=== PATIENT | male | born 1990 | race Caucasian/White ===

== ENCOUNTER 2020-11-11 08:05 | Emergency (ER) | payer OTHER, SELFPAY ==
[2020-11-11 08:20] VITALS: BP 130/78; PULSE 91; RESP 16; TEMP 38.6; O2SAT 97; BMI 30.4
--- NOTE | 2020-11-11 08:26 | W.ED.COVID ---
HPI - COVID General: Chief Complaint: COVID symptoms Stated Complaint: TEMP, COUGH, BODY ACHES Time Seen by Provider: 11/11/20 08:13 Triage information: Has fever, cough or shortness of breath. Exposure to COVID + person last 14 days History of Present Illness: HPI Narrative: Patient is a 30-year-old male comes to the ED with fever, cough and body aches. Patient says he was exposed to some employee who had tested positive for COVID-19 right before the onset of symptoms. He says it is symptoms started couple days ago on Saturday. He is having symptoms of fever, chills, body aches, cough and shortness of breath. He also reports some episodes of nausea but has not had any vomiting. Patient says he has not had the COVID-19 vaccination. COVID 19 common symptoms: positive fever(s), chills, non-productive cough, dyspnea, body aches, nasal congestion and nausea (episodes of nausea); negative productive cough, fatigue, headache(s), throat pain, vomiting or diarrhea COVID 19 other sytmptoms: negative chest pain COVID Results: SARS-CoV-2 RNA (RT-PCR) Pending 11/11/20 09:15 11/11/20 Review of Systems Const: Reports: fever(s), chills and body aches; Denies: fatigue Eyes: Denies: change in vision or eye discomfort ENMT: Reports: nasal discharge and nasal congestion; Denies: throat pain or odynophagia Card: Denies: chest pain, palpitations, edema, swelling of feet/ankles, dyspnea on exertion or orthopnea Resp: Reports: dyspnea and non-productive cough; Denies: productive cough GI: Reports: nausea (episodes of nausea); Denies: abdominal pain, vomiting, diarrhea, constipation or hematochezia : Denies: flank pain, difficulty urinating, dysuria or hematuria Musc: Denies: neck pain, back pain or extremity swelling Skin/Breast: Denies: rash or new lesions Neuro: Denies: headache(s), numbness in extremities or weakness in extremities Physical Exam Const: COMMON NORMALS: no acute distress, patient oriented x3 and alert GENERAL APPEARANCE: cooperative HENMT: COMMON NORMALS: normocephalic HEAD & SCALP: normocephalic MOUTH: Normal oral and palatal mucosa present THROAT: posterior oropharynx normal and uvula midline Eye: COMMON NORMALS: Equal, round and reactive pupils present PUPIL: Yes Equal, round and reactive pupils present Neck/C-Spine: COMMON NORMALS: supple GENERAL: Yes normal visual inspection Resp: COMMON NORMALS: normal respiratory effort, No retractions, No use of accessory muscles and clear to auscultation bilaterally AUSCULTATION: clear to auscultation bilaterally Cardio: COMMON NORMALS: regular rate, regular rhythm, S1 normal heart sound present, S2 normal heart sound present, No gallops present (Cardio), No clicks present (Cardio), No murmurs present (Cardio) and Peripheral pulses 2+ throughout RATE: regular rate RHYTHM: regular rhythm HEART SOUNDS: S1 normal heart sound present and S2 normal heart sound present PERIPHERAL PULSES: Peripheral pulses 2+ throughout GI: COMMON NORMALS: Normal to inspection, nondistended, normoactive bowel sounds present, Soft to palpation, non-tender and no masses PALPATION: Yes Soft to palpation : COMMON NORMALS: Yes no CVA tenderness BLADDER/KIDNEY EXAM: Yes no CVA tenderness Back/Pelvis: COMMON NORMALS: no CVA tenderness Extremity: COMMON NORMALS: normal to inspection Neuro: COMMON NORMALS: patient oriented x3 and moves all extremities SENSORIUM/ORIENTATION: Yes alert Skin: GENERAL SKIN EXAM: dry skin Course Vital Signs: Vital signs: Vital Signs Temperature 101.5 F H 11/11/20 08:20 Pulse Rate 97 11/11/20 09:44 Respiratory Rate 17 11/11/20 09:44 Blood Pressure 124/64 11/11/20 09:44 Pulse Oximetry 95 11/11/20 09:44 MDM - COVID MDM Narrative: Medical decision making narrative: Patient is a 20-year-old male comes to the ED with upper respiratory Covid symptoms. Patient was exposed to an employee that tested positive for COVID-19 right before his symptoms started. He has a fever 101.5 here in the ED but the rest of vitals are stable and O2 sat is 97% on room air. Chest x-ray shows bilateral patchy pulmonary opacities consistent with pneumonia. Here in the ED patient was given Solu-Medrol and albuterol inhaler breathing treatment. Covid testing was performed and is pending. Patient was diagnosed with fever with exposure to COVID-19 virus and pneumonia discharged home on azithromycin, Tessalon Perles, Medrol Dosepak and Zofran. He was told to follow-up with his PCP in 7 to 10 days for reevaluation. He was instructed on self quarantine procedure. Return to ED precautions given. Patient understood agree with plan. Imaging Data: CXR: Attestation: I personally reviewed and interpreted this imaging study as follows: Radiologist's impression: [address] [address] XRay Report Signed Patient: Trino Denney Unit #: [id number] : 1990 Age/Sex: 30 / M ADM Date: 11/11/20 Loc: ER Room/Bed: Attending Dr: Ordering Provider/Ordering MD: Twan Danielson Date of Service: 11/11/20 Procedure(s): XR chest 1V portable [id number] Accession Number(s): [id number] Report Number: [id number] WS: [id number] Portable AP upright chest, 11/11/2020 Clinical Data: cough, fever Comparison: None. Findings: No nodules, masses or effusions are seen. The heart is normal. The pulmonary vascularity is not increased. No pneumothorax is seen. Bilateral minimal patchy opacities are present and the patient could have diffuse pneumonia. XR/XR chest 1V portable [id number] Impression: Bilateral minimal patchy pulmonary opacities consistent with pneumonia. Dictated By: Sadie Perkins MD Signed By: Sadie Perkins MD Signed Date/Time: 11/11/20908 DD/ 7 COVID Results: SARS-CoV-2 RNA (RT-PCR) Pending 11/11/20 09:15 11/11/20 Discharge Plan Discharge Patient Disposition: Home Clinical Impression: Fever with exposure to COVID-19 virus Pneumonia Qualifiers: Pneumonia type: due to unspecified organism Laterality: bilateral Lung location: unspecified part of lung Qualified Code(s): J18.9 - Pneumonia, unspecified organism Condition: Stable Prescriptions: New azithromycin 250 mg tablet See Rx Instructions .ROUTE .COMPLEX Qty: 6 RF: 0 Medrol (Derrick) 4 mg tablets,dose pack See Rx Instructions .ROUTE .COMPLEX Qty: 21 RF: 0 Tessalon Perles 100 mg capsule 100 mg PO QID PRN (Reason: cough) Qty: 20 RF: 0 Zofran 4 mg tablet 4 mg PO Q8H PRN (Reason: nausea and vomiting) Qty: 10 RF: 0 Discharge Orders: Discharge ED (Routine); Ordered 11/11/20 Ordered By: Twan Danielson Discharge Diet: Regular Discharge Activity: Limit activity as instructed Patient Instructions: Viral Syndrome (ED), Pneumonia (ED) Activity Restrictions/Additional Instructions: Follow-up with medical provider as directed. Self quarantine for the next 10 days from start of symptoms. COVID-19 testing was performed and results should be back in the next 48 hours. Hospital contact you to let you know results, but I would contact the hospital daily to check on results. Make sure you drink plenty of fluids and stay hydrated. Take [id number] ibuprofen or Tylenol for any fevers. Take medications as prescribed. Return to the ER or your medical provider if condition worsens. Please read and understand discharge instructions. Thank you for choosing [facility] for your healthcare needs today. Please realize this is an emergency room and that we are providing you with a medical screening exam and this may not be complete and all inclusive of all the testing and or work up that you may need to determine your ailment or severity of your illness. It is very important that you follow up as instructed or that you return to the Emergency Department should you have concerns or if your condition changes or worsens in any way. Coding Level of Care Code ED Assessment Manager for [facility] Exam Comprehensive
--- NOTE | 2020-11-11 08:37 | XR_ITS ---
WS: [id number] Portable AP upright chest, 11/11/2020 Clinical Data: cough, fever Comparison: None. Findings: No nodules, masses or effusions are seen. The heart is normal. The pulmonary vascularity is not increased. No pneumothorax is seen. Bilateral minimal patchy opacities are present and the rosa ent could have diffuse pneumonia. XR/XR chest 1V portable [id number] Impression: Bilateral minimal patchy pulmonary opacities consistent with pneumonia.
[2020-11-11 09:05] VITALS: PULSE 97; RESP 18; O2SAT 95
[2020-11-11] MEDS: albuterol 8 gm MDI 2 PUFF INHALATION (09:06)
[2020-11-11] MEDS: acetaminophen 500 mg Tablet 1000 MG PO (09:09)
[2020-11-11 09:13] VITALS: PULSE 93
[2020-11-11 09:25] VITALS: BP 110/65; PULSE 88; RESP 18; O2SAT 95
[2020-11-11 09:44] VITALS: BP 124/64; PULSE 97; RESP 17; O2SAT 95
[2020-11-13 01:32] LABS: Quest SARS-CoV-2 RNA DETECTED (NOT DETECTED)
--- NOTE | 2020-11-13 08:35 | PC.NURSE ---
left message for pt to call back and receive COVID results
--- NOTE | 2020-11-13 10:10 | PC.NURSE ---
pt notified of covid results
== END 2020-11-11 09:45 | disposition home or self-care (01) ==
PROVIDERS: Emergency Provider Physician Assistant
DX: U07.1 COVID-19 (principal); J12.82 Pneumonia due to coronavirus disease 2019
CPT/HCPCS: 71045; 87635; 94640; 96372; 99283; J2930; J3535

== ENCOUNTER 2020-11-14 12:28 | Inpatient (IN) | payer OTHER, SELFPAY ==
[2020-11-14] VITALS (10 sets, daily range): BP systolic 112–135; BP diastolic 61–80; PULSE 97–119; RESP 18–28; TEMP 36.9–38.8; O2SAT 87–97; BMI 31.3
--- NOTE | 2020-11-14 14:33 | XRR_ITS ---
PROCEDURE INFORMATION: Exam: XR Chest Exam date and time: 11/14/2020 2:33 PM Age: 30 years old Clinical indication: Condition or disease; Other: Covid TECHNIQUE: Imaging protocol: XR of the chest. Views: 1 view. COMPARISON: CR XR chest 1V portable [id number] 11/11/2020 8:49 AM FINDINGS: Lungs: Diffuse patulous opacities throughout both lungs. Pleural spaces: Unremarkable. No pleural effusion. No pneumothorax. Heart/Mediastinum: Unremarkable. No cardiomegaly. Bones/joints: Unremarkable. XR/XR chest 1V portable [id number] IMPRESSION: Diffuse patulous opacities throughout both lungs, increased from 11/11/2020 study, consistent with worsening COVID pneumonia.
--- NOTE | 2020-11-14 14:34 | ECG_ITS ---
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 Measurements Intervals [place] Rate: 101 P: 32 ME: 170 QRS: 30 QRSD: 87 T: 2 QT: 297 QTc: 385 Interpretive Statements SINUS TACHYCARDIA NONSPECIFIC T-WAVE ABNORMALITY ABNORMAL RHYTHM ECG WARNING: DATA QUALITY MAY AFFECT INTERPRETATION No previous ECG available for comparison Electronically Signed On 11-14-2020 19:01:39 CDT by Sanjuanita Myers M.D. [email or web address]/store/[id number]
[2020-11-14] MEDS: albuterol 8 gm MDI 2 PUFF INHALATION (14:54)
[2020-11-14 15:07] LABS: Basophils % 0.3 %; Hematocrit 40.9 % (42.0-52.0); Hemoglobin 13.3 g/dL (11.7-16.6); Lymphocytes # 0.6 10^3/uL (0.8-4.8); Lymphocytes % 15.8 %; Mean Corpuscular HGB Conc 32.5 g/dL (30.0-36.0); Mean Corpuscular Hemoglobin 29.7 pg (28.0-34.0); Mean Corpuscular Volume 91.3 fL (80-94); Mean Platelet Volume 10.2 fL (7.4-10.4); Monocytes # 0.2 10^3/uL (0.2-0.9); Monocytes % 6.1 %; Neutrophils # 3.04 10^3/uL (1.8-7.7); Neutrophils % 77.3 %; Nucleated Red Blood Cells % 0 %; Platelet Count 203 10^3/cmm (130-400); Red Blood Count 4.48 10^6/uL (4.1-5.3); Red Cell Distribution Width 11.8 % (12.1-15.1); White Blood Count 3.9 10^3/uL (4.0-10.0)
[2020-11-14 15:14] LABS: ABG PCO2 43.3 mmHg (35-45); ABG PH Result 7.44 (7.35-7.45); Alveolar-Arterial Oxygen Gradi 14.3 mmHg (5-10); Arterial Blood Gas Hematocrit 41.2 % (42-52); Base Excess ABG 4.6 mmol/L (-2.0-2.0); Blood Gas Operator Identificat AMH; Blood Gas Sample Site Brachial, left; Blood Gas Sample Type Arterial; Carboxyhemoglobin 0.8 %THgb (0.4-20.1); HCO3 ABG 29.4 mmol/L (22-26); HGB O2 Sat 92.4 % (95-100); Ionized Calcium Level - ABG 1.2 mmol/L (1.1-1.4); Methemoglobin 0.8 % (0.4-1.5); Oxygen Device NC; PO2 ABG 65.4 mmHg (80.0-100.0); Potassium Level - ABG 3.7 mmol/L (3.5-5.0); Total Hemoglobin 13.4 g/dL (14-18)
[2020-11-14] MEDS: sodium chloride 0.9% 1,000 ML 999 ML IV (15:18)
[2020-11-14] MEDS: acetaminophen 500 mg Tablet 1000 MG PO (15:28)
[2020-11-14] MEDS: levofloxacin-dextrose 5 % 750 MG/150 ML PREMIX 100 MG IV (15:28)
[2020-11-14 15:29] LABS: Alanine Aminotransferase 36 U/L (0-41); Albumin Level 3.9 g/dL (3.5-5.2); Alkaline Phosphatase 47 IU/L (40-130); Anion Gap 13.4 (5-19); Aspartate Amino Transferase 65 U/L (0-40); Blood Urea Nitrogen 11 mg/dL (6-20); Calcium 8.3 mg/dL (8.5-10.5); Carbon Dioxide 30 mmol/L (22-29); Chloride 97 mmol/L (98-107); Globulin 2.6 g/dL (1.3-4.6); Glomerular Filtration Rate 98.4 mL/min (90-130); Glucose 109 mg/dL (65-115); Osmolality Calculated 282 mOsm/kg (285-295); Potassium 4.4 mmol/L (3.5-5.1); Sodium 136 mmol/L (136-145); Total Bilirubin 0.4 mg/dL (0.15-1.2); Total Protein 6.5 g/dL (6.6-8.7); Troponin(5th) Baseline 6 ng/L (0-15)
[2020-11-14 15:30] LABS: Lactate (Lactic Acid level) 1.7 mmol/L (0.5-2.2)
[2020-11-14 16:06] LABS: Slide Review Slide Review Perform
--- NOTE | 2020-11-14 16:34 | ECG_ITS ---
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 Measurements Intervals [place] Rate: 87 P: 53 MI: 168 QRS: 42 QRSD: 90 T: 24 QT: 333 QTc: 402 Interpretive Statements SINUS RHYTHM Compared to ECG 11/14/2020 14:54:35 Sinus tachycardia no longer present T-wave abnormality no longer present Electronically Signed On 11-14-2020 19:04:52 CDT by Sanjuanita Myers M.D. [id number]
--- NOTE | 2020-11-14 17:08 | CTR_ITS ---
PROCEDURE INFORMATION: Exam: CTA Chest With Contrast Exam date and time: 11/14/2020 5:08 PM Age: 30 years old Clinical indication: Cough and fever and shortness of breath; Additional info: SOB TECHNIQUE: Imaging protocol: Computed tomographic angiography of the chest with contrast. 3D rendering (Not supervised by radiologist): MIP and/or 3D reconstructed images were created by the technologist. Radiation optimization: All CT scans at this facility use at least one of these dose optimization techniques: automated exposure control; mA and/or kV adjustment per patient size (includes targeted exams where dose is matched to clinical indication); or iterative reconstruction. Contrast material: OMNI 350; Contrast volume: 71 ml; Contrast route: INTRAVENOUS (IV); COMPARISON: CR XR chest 1V portable [id number] 11/14/2020 3:29 PM RADIATION DOSE METRICS: Total DLP (mGy-cm): 587.49 FINDINGS: Pulmonary arteries: Normal. No pulmonary emboli. Aorta: Unremarkable. No aortic aneurysm. No aortic dissection. Lungs: Diffuse patulous ground-glass opacities and consolidations within both lungs. Pleural spaces: Unremarkable. No pneumothorax. No pleural effusion. Heart: Unremarkable. No cardiomegaly. No pericardial effusion. Lymph nodes: Unremarkable. No enlarged lymph nodes. Bones/joints: Unremarkable. No acute fracture. Soft tissues: Unremarkable. CT/CT angio chest PE protcl [id number] IMPRESSION: 1. Negative for pulmonary embolism. 2. Multifocal ground-glass opacities/consolidations consistent with COVID pneumonia. Radiation Dose CTDIVOL = (mGy): DLP = 587.49 (mGy-cm)
--- NOTE | 2020-11-14 17:08 | PM.HP ---
Providers/Chief Complaint Admitting Physician: Brayan Garcia MD Chief Complaint: COVID+ (11.11), SOB, O2 @ 87-89 @ HOME History of Present Illness Trino Denney is a 30 year old male with no significant pmh came in with c/o worsening SOB for the last 3/4 days, fever as high as 102, cough,loss of taste ,smell and nausea along with generalized weakness as well as fatigue.He was diagnosed with COVID on 11/11 and was initially sent home.Upon arrival in the ER he was worked up for above mention complain. Imaging studies: CTA Chest with Contrast :No P/E.Extensive B/L Multifocal ground-glass opacities/consolidations. ABG :Ph: 7.4 , PCO2: 43,PO2:65 FIO2: 32 % Pertienet labs :WBC: 3.9, H/H : 13/40 P/C: 203 , CMP :Normal Review of Systems Const: Denies: chills or change in appetite Card: Denies: palpitations, edema or swelling of feet/ankles Resp: Denies: wheezing or pain on inspiration GI: Denies: abdominal pain, diarrhea or constipation : Denies: flank pain or difficulty urinating Musc: Denies: back pain, extremity pain or extremity swelling Neuro: Denies: difficulty walking or confusion Medications/Allergies Home Medications Medication Instructions Recorded Confirmed Last Taken Type azithromycin See Rx Instructions .ROUTE 11/11/20 11/14/20 11/14/20 Rx .COMPLEX #6 tab benzonatate [Tessalon Perles] 100 mg PO QID PRN #20 cap 11/11/20 11/14/20 11/14/20 Rx methylprednisolone [Medrol (Derrick)] See Rx Instructions .ROUTE 11/11/20 11/14/20 11/14/20 Rx .COMPLEX #21 ea ondansetron HCl [Zofran] 4 mg PO Q8H PRN #10 tab 11/11/20 11/14/20 11/14/20 Rx Allergies Allergy/AdvReac Type Severity Reaction Status Date / Time No Known Allergies Allergy Verified 11/11/20 08:26 Vitals/I&O/Wt Last Vital Signs Temp 100.8 F H 11/14/20 12:47 Pulse 97 11/14/20 16:15 Resp 28 H 11/14/20 15:09 BP 135/68 11/14/20 16:00 Pulse Ox 93 11/14/20 16:00 Weight last 48 hrs Weight 90.718 kg Physical Exam Const: COMMON NORMALS: patient oriented x3 HENMT: COMMON NORMALS: normocephalic and atraumatic HEAD & SCALP: normocephalic and atraumatic Resp: AUSCULTATION: clear to auscultation bilaterally OTHER: Diminished Air entry B/L Cardio: COMMON NORMALS: regular rate, regular rhythm, S1 normal heart sound present, S2 normal heart sound present, No gallops present (Cardio), No murmurs present (Cardio), No rub (Cardio) and Peripheral pulses 2+ throughout RATE: regular rate RHYTHM: regular rhythm HEART SOUNDS: S1 normal heart sound present and S2 normal heart sound present PERIPHERAL PULSES: Peripheral pulses 2+ throughout GI: COMMON NORMALS: Normal to inspection, nondistended, normoactive bowel sounds present, Soft to palpation, non-tender, No hepatosplenomegaly present and no masses AUSCULTATION: Yes normoactive bowel sounds PALPATION: Yes Soft to palpation and Yes No hepatosplenomegaly present RECTAL EXAM: Yes deferred Extremity: COMMON NORMALS: no clubbing, cyanosis or edema and no pedal edema Neuro: COMMON NORMALS: patient oriented x3 Data : 11/14/20 14:52 11/14/20 14:52 Micro: Microbiology 11/14/20 15:55 Blood Culture - Preliminary Blood SPECIMEN COLLECTED 11/14/20 16:00 Blood Culture - Preliminary Blood SPECIMEN COLLECTED A&P Assessment and plan (1) Respiratory failure with hypoxia: Acute Hypoxic r/f 2/2 COVID PNA On COVID Protocol. Status: Acute (2) Pneumonia due to 2019 novel coronavirus: Status: Acute (3) Leukopenia: Likely 2/2 to COVID Infection Monitor CBC Status: Acute Attestations Medical Necessity Statement*: Patient needs to be in hospital for the management of COVID PNA.Anticipated LOS Greater then 2 midnights. Coding Level of Care Code Acute Gallery Manager for Ced [place] Diagnoses Respiratory failure with hypoxia J96.91 Pneumonia due to 2019 novel coronavirus U07.1; J12.82 Leukopenia D72.819
[2020-11-14] MEDS: iohexol 350 mg/mL 100 mL Btl IV (17:40)
[2020-11-14] MEDS: remdesivir 200 MG in sodium chloride 0.9% (100 ml) 100 ML 100 MG IV (17:59)
[2020-11-14] MEDS: enoxaparin 40 mg/0.4 mL Syringe SUBCUT (18:03)
--- NOTE | 2020-11-14 20:56 | ED_ITS ---
HPI - SOB/Dyspnea General: Chief Complaint: Shortness of Breath/Dyspnea Stated Complaint: COVID+ (07.16), SOB, O2 @ 87-89 @ HOME Time Seen by Provider: 11/14/20 14:30 History of Present Illness: HPI Narrative: The patient is a previously well 30-year-old male who comes to the ER complaining he started feeling ill last week. He was diagnosed positive with coronavirus on the . He says he is gradually gotten worse over the last couple days and is satting 87% on room air. He is short of breath. He is on 4 L of oxygen here satting in the upper 90s. MD elicited complaint: shortness of breath Onset (ago): day(s) (5) Context: recent illness Timing: constant Severity: severe Associated symptoms: Reports chest congestion, cough and fever(s); Deny abdominal pain, chest pain, dizziness, extremity pain, orthopnea, palpitations or polyuria Review of Systems General: Reports: 10 or more systems reviewed and unremarkable except in HPI a nd below Const: Reports: fever(s), chills, body aches and fatigue Eyes: Denies: change in vision, blurry vision or eye redness ENMT: Denies: throat pain, swelling of lips/tongue, ear or mastoid pain or nasal congestion Card: Denies: chest pain, palpitations, irregular heart rhythm, edema, dyspnea on exertion or orthopnea Resp: Reports: dyspnea, productive cough and chest congestion GI: Denies: abdominal pain, diarrhea or GI cramping : Denies: flank pain, urinary frequency or urinary urgency Musc: Reports: joint pain and other (Myalgias); Denies: neck pain, back pain, extremity pain, joint redness, limited range of motion or muscle weakness Skin/Breast: Denies: rash, pruritus, erythema, skin pain or skin tenderness Neuro: Reports: headache(s); Denies: numbness in extremities, weakness in extremities, sensory changes, difficulty walking, dizziness, confusion or Slurred speech present Psych: Denies: anxiety or depression Endo: Denies: polyuria All/Imm: Denies: urticaria, throat swelling or tongue swelling Physical Exam Const: COMMON NORMALS: no acute distress, average body habitus, patient oriented x3, no limitations, healthy appearing, alert and well nourished GENERAL APPEARANCE: cooperative, comfortable, well kempt and well developed ORIENTATION/CONSCIOUSNESS: Yes awake, Yes oriented to person, Yes oriented to place and Yes oriented to time HENMT: COMMON NORMALS: normocephalic, external ears normal and Normal external nose present HEAD & SCALP: normal to inspection and normocephalic NOSE: Normal external nose present EXTERNAL EAR: Yes external ears normal MOUTH: Normal oral and palatal mucosa present THROAT: posterior oropharynx normal Eye: COMMON NORMALS: Equal, round and reactive pupils present and EOMs intact bilaterally GENERAL EYE: appearance normal, both eyes and all related structures PUPIL: Yes Equal, round and reactive pupils present Neck/C-Spine: COMMON NORMALS: full ROM, no lymphadenopathy, no meningeal signs and no JVD GENERAL: Yes normal visual inspection Lymph: LYMPHATIC: no lymphadenopathy noted Chest: COMMONS NORMALS: normal inspection of the chest and normal palpation of entire chest wall Resp: COMMON NORMALS: normal respiratory effort, No retractions, No use of accessory muscles, clear to auscultation bilaterally and percussion normal EFFORT & INSPECTION: Yes able to speak in complete sentences AUSCULTATION: clear to auscultation bilaterally PERCUSSION: percussion normal Cardio: COMMON NORMALS: no JVD, regular rate, regular rhythm, S1 normal heart sound present, S2 normal heart sound present and Peripheral pulses 2+ throughout RATE: regular rate RHYTHM: regular rhythm HEART SOUNDS: S1 normal heart sound present and S2 normal heart sound present PERIPHERAL PULSES: Peripheral pulses 2+ throughout GI: COMMON NORMALS: Normal to inspection, nondistended, normoactive bowel sounds present, Soft to palpation, non-tender and no masses INSPECTION: Yes normal to inspection PALPATION: Yes Soft to palpation : COMMON NORMALS: Yes no CVA tenderness BLADDER/KIDNEY EXAM: Yes no CVA tenderness Back/Pelvis: COMMON NORMALS: no CVA tenderness, thoracic and lumbar spine normal to inspection, no thoracic nor lumbar tenderness and thoraco-lumbar ROM normal Extremity: COMMON NORMALS: normal to inspection, full ROM, capillary refill normal, no joint enlargement and no pedal edema GENERAL: Yes normal exam except as noted Neuro: COMMON NORMALS: patient oriented x3, CN's II-XII intact bilaterally, moves all extremities, no focal motor deficits, no sensory deficits noted and gait normal SENSORIUM/ORIENTATION: Yes alert, Yes oriented to person, Yes oriented to place and Yes oriented to time MENINGEAL SIGNS: Yes no meningeal signs Psych: COMMON NORMALS: mental status grossly normal, Normal thought process present, cooperative, normal affect and speech normal APPEARANCE: Yes well kempt ATTITUDE: Yes calm SPEECH: Yes normal speech THOUGHT PROCESS: Normal thought process present Skin: COMMON NORMALS: no rashes or lesions noted GENERAL SKIN EXAM: no rashes or lesions noted Course Vital Signs: Vital signs: Vital Signs Temperature 100.8 F H 11/14/20 12:47 Pulse Rate 98 11/14/20 20:19 Respiratory Rate 18 11/14/20 20:19 Blood Pressure 115/64 11/14/20 20:19 Pulse Oximetry 97 11/14/20 20:19 MDM - SOB/Dyspnea MDM Narrative: Medical decision making narrative: The patient came to the ER with shortness of breath, headache, satting in the upper 80s on room air. He is requiring 4 L and is quite short of breath. He was given albuterol, levofloxacin, dexamethasone and his Covid test did come back positive. He will be admitted to Dr. Garcia. Lab Data: Labs: Lab Results 11/14/20 11/14/20 11/14/20 Range/Units 14:52 14:52 14:52 WBC 3.9 L (4.0-10.0) 10^3/ uL RBC 4.48 (4.1-5.3) 10^6/u L Hgb 13.3 (11.7-16.6) g/dL Hct 40.9 L (42.0-52.0) % MCV 91.3 (80-94) fL MCH 29.7 (28.0-34.0) pg MCHC 32.5 (30.0-36.0) g/dL RDW 11.8 L (12.1-15.1) % Plt Count 203 (130-400) 10^3/c mm MPV 10.2 (7.4-10.4) fL Neut % (Auto) 77.3 % Lymph % (Auto) 15.8 % Mora % (Auto) 6.1 % Eos % (Auto) 0.0 % Baso % (Auto) 0.3 % Neut # (Auto) 3.04 (1.8-7.7) 10^3/u L Lymph # (Auto) 0.6 L (0.8-4.8) 10^3/u L Mora # (Auto) 0.2 (0.2-0.9) 10^3/u L Eos # (Auto) 0.0 (0.0-0.8) 10^3/u L Baso # (Auto) 0.0 (0.0-0.1) 10^3/u L Nucleated RBC % (a uto) 0 % Nucleated RBCs # 0.0 /100WBC Specimen Type Sample Site ABG pH (7.35-7.45) ABG pCO2 (35-45) mmHg ABG pO2 (80.0-100.0) mmH g ABG HCO3 (22-26) mmol/L ABG O2 Saturation ABG Base Excess (-2.0-2.0) mmol/ L Gregory Test A-a O2 Gradient (5-10) mmHg Hematocrit (42-52) % Hgb O2 Saturation (95-100) % Carboxyhemoglobin (0.4-20.1) %THgb Methemoglobin (0.4-1.5) % Total Hemoglobin (14-18) g/dL Ionized Calcium (1.1-1.4) mmol/L O2 Delivery Device O2 Liters/Min % FiO2 % Roof [employer] Setter ID Sodium 136 (136-145) mmol/L Potassium 4.4 (3.5-5.1) mmol/L Chloride 97 L (98-107) mmol/L Carbon Dioxide 30 H (22-29) mmol/L Anion Gap 13.4 (5-19) BUN 11 (6-20) mg/dL Creatinine 0.9 (0.7-1.2) mg/dL GFR Calculation 98.4 (90-130) mL/min Glucose 109 (65-115) mg/dL Calculated Osmolal ity 282 L (285-295) mOsm/k g Lactate 1.7 (0.5-2.2) mmol/L Calcium 8.3 L (8.5-10.5) mg/dL Total Bilirubin 0.4 (0.15-1.2) mg/dL AST 65 H (0-40) U/L ALT 36 (0-41) U/L Alkaline Phosphata se 47 (40-130) IU/L Troponin T Baselin e (0-15) ng/L Total Protein 6.5 L (6.6-8.7) g/dL Albumin 3.9 (3.5-5.2) g/dL Globulin 2.6 (1.3-4.6) g/dL 11/14/20 11/14/20 Range/Units 14:52 15:03 WBC (4.0-10.0) 10^3/ uL RBC (4.1-5.3) 10^6/u L Hgb (11.7-16.6) g/dL Hct (42.0-52.0) % MCV (80-94) fL MCH (28.0-34.0) pg MCHC (30.0-36.0) g/dL RDW (12.1-15.1) % Plt Count (130-400) 10^3/c mm MPV (7.4-10.4) fL Neut % (Auto) % Lymph % (Auto) % Mora % (Auto) % Eos % (Auto) % Baso % (Auto) % Neut # (Auto) (1.8-7.7) 10^3/u L Lymph # (Auto) (0.8-4.8) 10^3/u L Mora # (Auto) (0.2-0.9) 10^3/u L Eos # (Auto) (0.0-0.8) 10^3/u L Baso # (Auto) (0.0-0.1) 10^3/u L Nucleated RBC % (a uto) % Nucleated RBCs # /100WBC Specimen Type Arterial Sample Site Brachial, left ABG pH 7.44 (7.35-7.45) ABG pCO2 43.3 (35-45) mmHg ABG pO2 65.4 L (80.0-100.0) mmH g ABG HCO3 29.4 H (22-26) mmol/L ABG O2 Saturation 94.0 ABG Base Excess 4.6 H (-2.0-2.0) mmol/ L Gregory Test N/a A-a O2 Gradient 14.3 H (5-10) mmHg Hematocrit 41.2 L (42-52) % Hgb O2 Saturation 92.4 L (95-100) % Carboxyhemoglobin 0.8 (0.4-20.1) %THgb Methemoglobin 0.8 (0.4-1.5) % Total Hemoglobin 13.4 L (14-18) g/dL Ionized Calcium 1.2 (1.1-1.4) mmol/L O2 Delivery Device Nc O2 Liters/Min 3.0 % FiO2 32.0 % Ro[employer] ID Amh Sodium 137.0 (136-145) mmol/L Potassium 3.7 (3.5-5.1) mmol/L Chloride (98-107) mmol/L Carbon Dioxide (22-29) mmol/L Anion Gap (5-19) BUN (6-20) mg/dL Creatinine (0.7-1.2) mg/dL GFR Calculation (90-130) mL/min Glucose 112.0 (65-115) mg/dL Calculated Osmolal ity (285-295) mOsm/k g Lactate (0.5-2.2) mmol/L Calcium (8.5-10.5) mg/dL Total Bilirubin (0.15-1.2) mg/dL AST (0-40) U/L ALT (0-41) U/L Alkaline Phosphata se (40-130) IU/L Troponin T Baselin e 6 (0-15) ng/L Total Protein (6.6-8.7) g/dL Albumin (3.5-5.2) g/dL Globulin (1.3-4.6) g/dL Discharge Plan Discharge Patient Disposition: Admitted As Inpatient Admit Provider: Brayan Garcia Clinical Impression: Pneumonia due to 2019 novel coronavirus Condition: Stable 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
[2020-11-14 20:58] LABS: Add Urine Culture? No; Add Urine Microscopic? YES; Bacteria Urine TRACE /hpf; Bilirubin Urine Neg (Negative); Blood Urine Neg (Negative); Glucose Urine UA Norm (Normal); Ketones Urine Negative (Negative); Leukocyte Esterase Urine Negative (Negative); Mucus Urine TRACE /hpf; Nitrate Urine Negative (Negative); Protein Urine Trace (Negative); RBC Urine 0-4 /hpf (0-2); Squamous Epithelial Cell Urine 0-4 /hpf (0-5); Urine Appearance Clear (CLEAR); Urine Color Yellow (Yellow); Urobilinogen Urine 4 mg/dL (Negative); WBC Urine 0-4 /hpf (0-5); pH Urine 5 (5-7)
[2020-11-14] MEDS: guaiFENesin-dextromethorphan UDC 10 mL PO (22:25)
[2020-11-14] MEDS: dexamethasone 4 mg/mL INJ 6 MG IVP (22:28)
[2020-11-14] MEDS: acetaminophen 325 mg Tablet 650 MG PO (23:11)
[2020-11-15] VITALS (18 sets, daily range): BP systolic 100–130; BP diastolic 63–81; PULSE 72–103; RESP 17–26; TEMP 36.5–37.2; O2SAT 90–97
[2020-11-15 00:14] LABS: Influenza A by IFA Negative (Negative); Influenza B by IFA Negative (Negative)
[2020-11-15] MEDS: guaiFENesin-dextromethorphan UDC 10 mL PO ×6 (01:30→21:58)
[2020-11-15 06:43] LABS: Hematocrit 40.8 % (42.0-52.0); Hemoglobin 13.2 g/dL (11.7-16.6); Lymphocytes # 0.7 10^3/uL (0.8-4.8); Lymphocytes % 21.7 %; Mean Corpuscular HGB Conc 32.4 g/dL (30.0-36.0); Mean Corpuscular Hemoglobin 29.8 pg (28.0-34.0); Mean Corpuscular Volume 92.1 fL (80-94); Mean Platelet Volume 9.8 fL (7.4-10.4); Monocytes # 0.2 10^3/uL (0.2-0.9); Monocytes % 6.3 %; Neutrophils # 2.15 10^3/uL (1.8-7.7); Neutrophils % 71.7 %; Nucleated Red Blood Cells % 0 %; Platelet Count 238 10^3/cmm (130-400); Red Blood Count 4.43 10^6/uL (4.1-5.3); Red Cell Distribution Width 11.7 % (12.1-15.1)
[2020-11-15 07:08] LABS: Fibrinogen 483 mg/dL (174-498)
[2020-11-15 07:11] LABS: D Dimer 0.57 ug/mIFEU (0-0.59)
[2020-11-15 07:14] LABS: Alanine Aminotransferase 38 U/L (0-41); Albumin Level 3.4 g/dL (3.5-5.2); Alkaline Phosphatase 47 IU/L (40-130); Anion Gap 13.3 (5-19); Aspartate Amino Transferase 63 U/L (0-40); Blood Urea Nitrogen 9 mg/dL (6-20); Calcium 8.2 mg/dL (8.5-10.5); Carbon Dioxide 28 mmol/L (22-29); Chloride 101 mmol/L (98-107); Globulin 3.3 g/dL (1.3-4.6); Glomerular Filtration Rate 131.5 mL/min (90-130); Glucose 142 mg/dL (65-115); Osmolality Calculated 287 mOsm/kg (285-295); Potassium 4.3 mmol/L (3.5-5.1); Sodium 138 mmol/L (136-145); Total Bilirubin 0.3 mg/dL (0.15-1.2); Total Protein 6.7 g/dL (6.6-8.7)
[2020-11-15 07:23] LABS: NT Pro B Type Natriuretic Pept 200 pg/mL (0-125); Procalcitonin 0.07 ng/mL (0-0.5)
[2020-11-15 07:34] LABS: Ferritin 838 ng/mL (30-400)
[2020-11-15 07:53] LABS: Slide Review Slide Review Perform
[2020-11-15] MEDS: dexamethasone 4 mg/mL INJ 6 MG IVP (09:11)
[2020-11-15] MEDS: albuterol 8 gm MDI 2 PUFF INHALATION ×3 (09:54→21:37)
--- NOTE | 2020-11-15 12:04 | PM.PN ---
Subjective Subjective: Interval history: was seen and examined this morning, he states that overall he has improved since yesterday,currently he is requiring 6 to 7 L oxygen through nasal cannula. Noted T-max : 101.9 . Medications: Reviewed: Yes Vitals/I&O/Wt Last Vital Signs Temp 98.1 F 11/15/20 11:47 Pulse 81 11/15/20 11:47 Resp 17 11/15/20 11:47 BP 119/76 11/15/20 11:47 Pulse Ox 92 11/15/20 11:47 11/14/20 11/15/20 11/15/20 22:59 06:59 14:59 Intake Total 1250 / 1250 1146.5 / 2396.5 360 / 360 Output Total 0 / 0 1800 / 1800 Balance 1250 / 1250 -653.5 / 596.5 360 / 360 Weight last 48 hrs Weight 91.49 kg Weight 90.718 kg Physical Exam Const: COMMON NORMALS: patient oriented x3 HENMT: COMMON NORMALS: normocephalic and atraumatic HEAD & SCALP: normocephalic and atraumatic Resp: OTHER: Bilateral diminished breath sounds Cardio: COMMON NORMALS: regular rate, regular rhythm, S1 normal heart sound present, S2 normal heart sound present, No gallops present (Cardio), No murmurs present (Cardio), No rub (Cardio) and Peripheral pulses 2+ throughout RATE: regular rate RHYTHM: regular rhythm HEART SOUNDS: S1 normal heart sound present and S2 normal heart sound present PERIPHERAL PULSES: Peripheral pulses 2+ throughout GI: COMMON NORMALS: Normal to inspection, nondistended, normoactive bowel sounds present, Soft to palpation, non-tender, No hepatosplenomegaly present and no masses AUSCULTATION: Yes normoactive bowel sounds PALPATION: Yes Soft to palpation and Yes No hepatosplenomegaly present RECTAL EXAM: Yes deferred Extremity: COMMON NORMALS: no clubbing, cyanosis or edema and no pedal edema Neuro: COMMON NORMALS: patient oriented x3 Data : 11/15/20 05:50 11/15/20 05:50 Micro: Microbiology 11/14/20 15:55 Blood Culture - Preliminary Blood SPECIMEN COLLECTED 11/14/20 16:00 Blood Culture - Preliminary Blood SPECIMEN COLLECTED A&P Assessment and plan (1) Respiratory failure with hypoxia: Acute Hypoxic r/f 2/2 COVID PNA CTA chest: D-dimer ESR CRP Ferritin Fibrinogen Blood culture Monitor ABG Monitor x-ray chest Remdesivir 5-day course Status post 1 dose of tocilizumab Dexamethasone 6 mg IV daily for 10 days Advair 1 puff twice daily Spirivia inhalation daily Robitussin-DM Tessalon Perles Ceftriaxone 1 mg IV daily Lovenox 40 subcu daily Supplemental oxygen as needed Incentive spirometry Flutter valve Status: Acute (2) Pneumonia due to 2019 novel coronavirus: Status: Acute (3) Leukopenia: Likely 2/2 to COVID Infection Monitor CBC Status: Acute Attestations Medical Necessity Statement*: Patient needs to be in hospital for management of Covid pneumonia. 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
[2020-11-15] MEDS: enoxaparin 40 mg/0.4 mL Syringe SUBCUT (18:20)
[2020-11-15] MEDS: remdesivir 100 MG in sodium chloride 0.9% (100 ml) 100 ML IV (18:26)
[2020-11-16] VITALS (17 sets, daily range): BP systolic 118–145; BP diastolic 74–80; PULSE 57–89; RESP 18–22; TEMP 36.6–36.9; O2SAT 88–97
[2020-11-16] MEDS: cefTRIAXone 1,000 MG in sodium chloride 0.9% (plus) 100 ML 100 MG IV ×2 (00:01→22:27)
[2020-11-16] MEDS: guaiFENesin-dextromethorphan UDC 10 mL PO ×6 (01:17→22:27)
[2020-11-16] MEDS: albuterol 8 gm MDI 2 PUFF INHALATION ×3 (01:30→20:37)
[2020-11-16 06:15] LABS: Eosinophils % 0.3 %; Hematocrit 38.3 % (42.0-52.0); Hemoglobin 12.7 g/dL (11.7-16.6); Lymphocytes # 1.6 10^3/uL (0.8-4.8); Lymphocytes % 39.1 %; Mean Corpuscular HGB Conc 33.2 g/dL (30.0-36.0); Mean Corpuscular Volume 90.5 fL (80-94); Mean Platelet Volume 9.2 fL (7.4-10.4); Monocytes # 0.4 10^3/uL (0.2-0.9); Monocytes % 10.1 %; Neutrophils # 1.99 10^3/uL (1.8-7.7); Neutrophils % 50.2 %; Nucleated Red Blood Cells % 0 %; Platelet Count 300 10^3/cmm (130-400); Red Blood Count 4.23 10^6/uL (4.1-5.3); Red Cell Distribution Width 11.7 % (12.1-15.1)
[2020-11-16 06:30] LABS: Alanine Aminotransferase 36 U/L (0-41); Albumin Level 3.1 g/dL (3.5-5.2); Alkaline Phosphatase 48 IU/L (40-130); Anion Gap 11.6 (5-19); Aspartate Amino Transferase 52 U/L (0-40); Blood Urea Nitrogen 9 mg/dL (6-20); Carbon Dioxide 29 mmol/L (22-29); Chloride 103 mmol/L (98-107); Globulin 2.9 g/dL (1.3-4.6); Glomerular Filtration Rate 131.5 mL/min (90-130); Glucose 129 mg/dL (65-115); Osmolality Calculated 290 mOsm/kg (285-295); Potassium 3.6 mmol/L (3.5-5.1); Sodium 140 mmol/L (136-145); Total Bilirubin 0.2 mg/dL (0.15-1.2)
[2020-11-16 06:32] LABS: C Reactive Protein 44.9 mg/L (0.0-4.9)
[2020-11-16 06:37] LABS: D Dimer 0.51 ug/mIFEU (0-0.59); Fibrinogen 450 mg/dL (174-498)
[2020-11-16 07:08] LABS: Slide Review Slide Review Perform
[2020-11-16 07:44] LABS: Ferritin 949 ng/mL (30-400)
[2020-11-16] MEDS: dexamethasone 4 mg/mL INJ 6 MG IVP (09:03)
--- NOTE | 2020-11-16 11:55 | P.PN_ITS ---
Subjective Subjective: Interval history: was seen and examined this morning, he states that overall he has improved. Shortness of breath and cough is improved , supplemental oxygen requirement is going down, has remained afebrile.Other vitals and labs have been reviewed. Medications: Reviewed: Yes Vitals/I&O/Wt Last Vital Signs Temp 98.5 F 11/16/20 11:26 Pulse 74 11/16/20 11:26 Resp 18 11/16/20 11:26 BP 145/74 11/16/20 11:26 Pulse Ox 97 11/16/20 11:26 11/15/20 11/16/20 11/16/20 22:59 06:59 14:59 Intake Total 580 / 1180 580 / 1760 240 / 240 Output Total 400 / 400 Balance 180 / 780 580 / 1360 240 / 240 Weight last 48 hrs Weight 92.533 kg Weight 91.49 kg Weight 90.718 kg Physical Exam Const: COMMON NORMALS: patient oriented x3 HENMT: COMMON NORMALS: normocephalic and atraumatic HEAD & SCALP: normocephalic and atraumatic Resp: COMMON NORMALS: clear to auscultation bilaterally AUSCULTATION: clear to auscultation bilaterally OTHER: Bilateral diminished breath sounds Cardio: COMMON NORMALS: regular rate, regular rhythm, S1 normal heart sound present, S2 normal heart sound present, No gallops present (Cardio), No murmurs present (Cardio), No rub (Cardio) and Peripheral pulses 2+ throughout RATE: regular rate RHYTHM: regular rhythm HEART SOUNDS: S1 normal heart sound present and S2 normal heart sound present PERIPHERAL PULSES: Peripheral pulses 2+ throughout GI: COMMON NORMALS: Normal to inspection, nondistended, normoactive bowel sounds present, Soft to palpation, non-tender, No hepatosplenomegaly present and no masses AUSCULTATION: Yes normoactive bowel sounds PALPATION: Yes Soft to palpation and Yes No hepatosplenomegaly present RECTAL EXAM: Yes deferred Extremity: COMMON NORMALS: no clubbing, cyanosis or edema and no pedal edema Neuro: COMMON NORMALS: patient oriented x3 Data : 11/16/20 05:47 11/16/20 05:47 Micro: Microbiology 11/14/20 15:55 Blood Culture - Preliminary Blood NEGATIVE TO DATE 11/14/20 16:00 Blood Culture - Preliminary Blood NEGATIVE TO DATE A&P Assessment and plan (1) Respiratory failure with hypoxia: Acute Hypoxic r/f 2/2 COVID PNA CTA chest: D-dimer ESR CRP Ferritin Fibrinogen Blood culture Monitor ABG Monitor x-ray chest Remdesivir 5-day course Status post 1 dose of tocilizumab Dexamethasone 6 mg IV daily for 10 days Advair 1 puff twice daily Spirivia inhalation daily Robitussin-DM Tessalon Perles Ceftriaxone 1 mg IV daily Lovenox 40 subcu daily Supplemental oxygen as needed Incentive spirometry Flutter valve Status: Acute (2) Pneumonia due to 2019 novel coronavirus: Status: Acute (3) Leukopenia: Likely 2/2 to COVID Infection Monitor CBC Status: Acute Attestations 2 Medical Necessity Statement*: Patient needs to be in hospital for management of respiratory failure secondary to Covid pneumonia. 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
[2020-11-16] MEDS: enoxaparin 40 mg/0.4 mL Syringe SUBCUT (18:16)
[2020-11-16] MEDS: remdesivir 100 MG in sodium chloride 0.9% (100 ml) 100 ML IV (18:17)
[2020-11-17] VITALS (10 sets, daily range): BP systolic 120–133; BP diastolic 76–85; PULSE 66–91; RESP 18–20; TEMP 36.4–36.8; O2SAT 85–98
[2020-11-17] MEDS: guaiFENesin-dextromethorphan UDC 10 mL PO ×4 (02:08→13:25)
[2020-11-17 06:52] LABS: Basophils % 0.2 %; Eosinophils # 0.1 10^3/uL (0.0-0.8); Eosinophils % 1.1 %; Hematocrit 40.4 % (42.0-52.0); Hemoglobin 13.5 g/dL (11.7-16.6); Lymphocytes # 1.9 10^3/uL (0.8-4.8); Mean Corpuscular HGB Conc 33.4 g/dL (30.0-36.0); Mean Corpuscular Hemoglobin 30.3 pg (28.0-34.0); Mean Corpuscular Volume 90.6 fL (80-94); Monocytes # 0.4 10^3/uL (0.2-0.9); Monocytes % 8.9 %; Neutrophils # 2.31 10^3/uL (1.8-7.7); Neutrophils % 49.2 %; Nucleated Red Blood Cells % 0 %; Platelet Count 362 10^3/cmm (130-400); Red Blood Count 4.46 10^6/uL (4.1-5.3); Red Cell Distribution Width 11.7 % (12.1-15.1); White Blood Count 4.7 10^3/uL (4.0-10.0)
[2020-11-17 07:11] LABS: Fibrinogen 388 mg/dL (174-498)
[2020-11-17 07:13] LABS: D Dimer 0.51 ug/mIFEU (0-0.59)
[2020-11-17 07:34] LABS: Alanine Aminotransferase 86 U/L (0-41); Albumin Level 3.2 g/dL (3.5-5.2); Alkaline Phosphatase 54 IU/L (40-130); Anion Gap 11.9 (5-19); Aspartate Amino Transferase 71 U/L (0-40); Blood Urea Nitrogen 8 mg/dL (6-20); C Reactive Protein 21.1 mg/L (0.0-4.9); Calcium 8.5 mg/dL (8.5-10.5); Carbon Dioxide 30 mmol/L (22-29); Chloride 101 mmol/L (98-107); Glomerular Filtration Rate 112.8 mL/min (90-130); Glucose 106 mg/dL (65-115); Osmolality Calculated 287 mOsm/kg (285-295); Potassium 3.9 mmol/L (3.5-5.1); Sodium 139 mmol/L (136-145); Total Bilirubin 0.4 mg/dL (0.15-1.2); Total Protein 6.2 g/dL (6.6-8.7)
[2020-11-17] MEDS: albuterol 8 gm MDI 2 PUFF INHALATION (07:58)
[2020-11-17] MEDS: dexamethasone 4 mg/mL INJ 6 MG IVP (09:06)
[2020-11-17 09:56] LABS: Ferritin 962 ng/mL (30-400)
[2020-11-17] MEDS: remdesivir 100 MG in sodium chloride 0.9% (100 ml) 100 ML IV (13:25)
--- NOTE | 2020-11-17 14:32 | P.DS_ITS ---
Discharge Providers Date of Admission: 11/14/20 18:10 Date of Discharge: November 17, 2020 Attending Provider at Admission: Brayan Garcia MD Attending Provider at Discharge: Brayan Garcia MD Diagnoses at Discharge Discharge Diagnosis (1) Respiratory failure with hypoxia: Status: Acute (2) Pneumonia due to 2019 novel coronavirus: Status: Acute (3) Leukopenia: Status: Resolved Reason for Visit Reason for Visit: COVID+ (11.11), SOB, O2 @ 87-89 @ HOME Hospital Course Hospital Course 30 year old male with no significant pmh came in with c/o worsening SOB for the last 3/4 days, fever as high as 102, cough,loss of taste ,smell and nausea along with generalized weakness as well as fatigue.He was diagnosed with COVID on 11/11 and was initially sent home.Upon arrival in the ER he was worked up for above mention complain. Imaging studies:CTA Chest with Contrast :No P/E.Extensive B/L Multifocal ground- glass opacities/consolidations. ABG :Ph: 7.4 , PCO2: 43,PO2:65 FIO2: 32 %. Pertienet labs :WBC: 3.9, H/H : 13/40 P/C: 203 , CMP :Normal. He was admitted for the management of acute hypoxic respiratory failure secondary to Covid pneumonia.He was managed as per Covid protocol. Received 4 days of remdesivir, received 1 dose of Tocilizumab, was on dexamethasone, inhalers, empirically on antibiotics, supplemental oxygen as needed, incentive spirometry, flutter valves. Cultures were negative. He responded well to the above medical management and was discharged on, albuterol inhaler, Advair, spirivia inhalers as well as dexamethasone 6 mg po daily for 7 days along with levofloxacin 500 mg po daily for 5 days. He has been advised to follow up with as outpatient in a week time.At the time of discharge he has qualified for 2 Ls home oxygen. Physical Exam Const: COMMON NORMALS: patient oriented x3 HENMT: COMMON NORMALS: normocephalic and atraumatic HEAD & SCALP: normocephalic and atraumatic Resp: COMMON NORMALS: clear to auscultation bilaterally AUSCULTATION: clear to auscultation bilaterally Cardio: COMMON NORMALS: regular rate, regular rhythm, S1 normal heart sound present, S2 normal heart sound present, No gallops present (Cardio), No murmurs present (Cardio), No rub (Cardio) and Peripheral pulses 2+ throughout RATE: regular rate RHYTHM: regular rhythm HEART SOUNDS: S1 normal heart sound present and S2 normal heart sound present PERIPHERAL PULSES: Peripheral pulses 2+ throughout GI: COMMON NORMALS: Normal to inspection, nondistended, normoactive bowel sounds present, Soft to palpation, non-tender, No hepatosplenomegaly present and no masses AUSCULTATION: Yes normoactive bowel sounds PALPATION: Yes Soft to palpation and Yes No hepatosplenomegaly present RECTAL EXAM: Yes deferred Extremity: COMMON NORMALS: no clubbing, cyanosis or edema and no pedal edema Neuro: COMMON NORMALS: patient oriented x3 Discharge Data Data Completed and Pending: Completed Studies During Hospitalization Category Date Time Status CT angio chest PE protcl [id number] Urge nt Cat Scan 11/14/20 17:08 Completed XR chest 1V tatyana ble [id number] Urgent Exams 11/14/20 14:33 Completed Pending at discharge Category Date Time Status Blood Culture Sta t Lab 11/14/20 15:55 Results C Reactive Protei n AM LABS Lab 11/18/20 04:00 Ordered Labs from last 24 hours 11/17/20 11/17/20 11/17/20 06:41 06:41 06:41 WBC 4.7 RBC 4.46 Hgb 13.5 Hct 40.4 L MCV 90.6 MCH 30.3 MCHC 33.4 RDW 11.7 L Plt Count 362 MPV 9.0 Neut % (Auto) 49.2 Lymph % (Auto) 40.0 Titus % (Auto) 8.9 Eos % (Auto) 1.1 Baso % (Auto) 0.2 Neut # (Auto) 2.31 Lymph # (Auto) 1.9 Titus # (Auto) 0.4 Eos # (Auto) 0.1 Baso # (Auto) 0.0 Nucleated RBC % (a uto) 0 Nucleated RBCs # 0.0 Fibrinogen 388 D-Dimer 0.51 Sodium 139 Potassium 3.9 Chloride 101 Carbon Dioxide 30 H Anion Gap 11.9 BUN 8 Creatinine 0.8 GFR Calculation 112.8 Glucose 106 Calculated Osmolal ity 287 Calcium 8.5 Ferritin 962 H Total Bilirubin 0.4 AST 71 H ALT 86 H Alkaline Phosphata se 54 C-Reactive Protein 21.1 H Total Protein 6.2 L Albumin 3.2 L Globulin 3.0 Vitals: Last Vital Signs Temp 97.6 F 11/17/20 12:00 Pulse 75 11/17/20 12:00 Resp 18 11/17/20 12:00 BP 124/78 11/17/20 12:00 Pulse Ox 98 11/17/20 12:00 Discharge Plan Discharge Patient Disposition: Home Condition: Stable Prescriptions: New Advair Diskus 250-50 mcg/dose Blister With Device 1 puff inhalation BID 15 Days Qty: 1 RF: 0 dextromethorphan-guaifenesin 10-100 mg/5 mL Syrup 10 ml PO Q4H 15 Days Qty: 900 RF: 0 benzonatate 100 mg Capsule 100 mg PO TID PRN (Reason: Cough) 15 Days Qty: 45 RF: 0 Ventolin HFA 90 mcg/actuation Hfa Aerosol Inhaler 2 puff inhalation Q4H.RESPIRATORY PRN (Reason: Shortness Of Breath) 15 Days Qty: 1 RF: 0 Spiriva with HandiHaler 18 mcg Capsule, W/Inhalation Device 18 mcg inhalation DAILY.RESPIRATORY 15 Days Qty: 15 RF: 0 dexamethasone 6 mg tablet 6 mg PO Q24H Qty: 7 RF: 0 levofloxacin 500 mg tablet 500 mg PO DAILY 5 Days Qty: 5 RF: 0 Discontinued azithromycin 250 mg tablet See Rx Instructions .ROUTE .COMPLEX Qty: 6 RF: 0 methylprednisolone [Medrol (Derrick)] 4 mg tablets,dose pack See Rx Instructions .ROUTE .COMPLEX Qty: 21 RF: 0 benzonatate [Tessalon Perles] 100 mg capsule 100 mg PO QID PRN (Reason: cough) Qty: 20 RF: 0 ondansetron HCl [Zofran] 4 mg tablet 4 mg PO Q8H PRN (Reason: nausea and vomiting) Qty: 10 RF: 0 Discharge Orders: Discharge Order (Routine); Ordered 11/17/20 Ordered By: Brayan Garcia Other Ambulatory Orders: DME: Oxygen (Order) Location: None Selected Ordered By: Brayan Garcia Referrals: Datar,Kevin Sahu MD [Physician] - 11/21/20 10:00 am Discharge Diet: Regular Discharge Activity: Increase activity as tolerated Patient Instructions: Benzonatate (By mouth), Albuterol (By breathing), Levofloxacin (By mouth), Dexamethasone (By mouth), Fluticasone/Salmeterol (By breathing), Tiotropium (By breathing), Pneumonia (GEN), Opioid Safety, Pneumonia Stoplight Discharge Attestations Time Spent in Discharge Care*: less than 30 min Specific Discharge Activities: educating patient, educating and/or supporting family/caregiver, discussing with pcp/other providers, discussing with rn field case manager/social workers/dc planners, documenting/other paperwork and evaluating patient/reviewing data Status at Discharge: Cognitive status at discharge: cognitively intact , Behavioral status at discharge: cooperative , Functional status at discharge: independent ambulation Overall status at discharge: patient is back to baseline Quality Metrics Clinical Quality Measures During this hospital stay, did patient experience: None Coding Level of Care Code Acute g DC note Diagnoses Respiratory failure with hypoxia J96.91 Pneumonia due to 2019 novel coronavirus U07.1; J12.82 Leukopenia D72.819
--- NOTE | 2020-12-05 17:04 | PC.SOCIAL ---
Notified patient that a PCP should really fill out paperwork for time off through [facility] since he still has not returned. Gave him number for [facility] he prefers to call and make an appt. He will decide what location. Will fax paperwork to them once he calls me back and requests it be sent to the clinic he chooses.
== END 2020-11-17 17:38 | disposition designated cancer center or children's hospital (05) | DRG 177 ==
LOC: ER 17:08 → MEDSURG 20:30
PROVIDERS: Admitting Provider Internal Medicine; Emergency Provider Family Medicine; Visit Provider Internal Medicine
DX: U07.1 COVID-19 (principal); J96.01 Acute respiratory failure with hypoxia; J12.82 Pneumonia due to coronavirus disease 2019; D72.819 Decreased white blood cell count, unspecified
CPT/HCPCS: 36415; 36600; 71045; 71275; 80051; 80053; 81001; 82330; 82728; 82805; 83605; 83880; 84145; 84484; 85025; 85378; 85384; 86140; 87040; 87804; 93005; 94640; 96365; 96367; 96372; 99285; J0696; J1100; J1650; J1956; J3262; J3535; J7030; Q9967